=== PATIENT | female | born 1985 | race Caucasian/White ===

== ENCOUNTER 2025-04-21 13:02 | Emergency (ER) | payer BC, SELFPAY ==
--- NOTE | 2025-04-21 13:11 | ED.GENADULT ---
HPI - General Adult General Stated complaint: RT hip injury Time Seen by Provider: 04/21/25 13:06 History of Present Illness HPI narrative: This 39-year-old female comes in reporting injury in her right hip region. She states that she was swimming and climbing up a rock face apparently when she slipped down and feels like she stressed her hip joint. She did not have any direct impact to her hip. She was able to swim and then walk in water. She also has been able to ambulate on land but feels like she has some weakness in her hip mechanism. In particular she has pain in the flexor mechanism of her right hip. Related Data Home Medications ?Medication ?Instructions ?Recorded ?Confirmed allergen 1 tab sublingual DAILY 04/21/25 04/21/25 xt,mite,D.farinae-D.pteronyssinus 12 SQ-HDM sublingual tablet (Odactra) cetirizine 10 mg capsule (All Day 10 mg PO DAILY PRN 04/21/25 04/21/25 Allergy (cetirizine)) cholecalciferol (vitamin D3) 50 50 mcg PO DAILY 04/21/25 04/21/25 mcg (2,000 unit) capsule Allergies Allergy/AdvReac Type Severity Reaction Status Date / Time avocado Allergy Severe throat Verified 04/21/25 13:31 numb, tongue numb fluticasone (From Flonase) Allergy Intermediate Chest Pain Verified 04/21/25 13:31 Review of Systems Status of ROS: Reports: 10 or more systems reviewed and unremarkable except as noted in History and below Narrative: Constitutional: No fevers, no weight gain or loss. Eyes: No discharge. No vision changes. HENT: No congestion, no sore throat, no ear pain. Cardiovascular: No chest pain, no palpitations. Respiratory: No shortness of breath, no wheezes, no cough. Gastrointestinal: No abdominal pain, no vomiting, no diarrhea. Genitourinary: No dysuria, no hematuria. Musculoskeletal: Right hip pain as described above. Skin: No rashes, no pruritis. Neurological: No dizziness, weakness, sensory change, speech change. Endo/Heme/Allergies: No bruising or bleeding. No polydipsia. Pysch: no suicidality, no anxiety, no insomnia. All other systems reviewed and are negative. Exam Narrative: Exam Narrative: Constitutional: Well-developed, well-nourished, no acute distress. HEENT: Normocephalic, atraumatic. Neck: Normal range of motion. Nontender. Supple. Heart: Regular. No murmurs. Normal rate. Intact distal pulses. Lungs: Clear to auscultation. No chest discomfort. No wheezes, rhonchi, or rales. Abdomen: Normal bowel sounds. Nontender. No rebound tenderness. Genitalia: Deferred. Back: No midline tenderness. Normal range of motion. Extremities: No pain when log-rolling her right leg. No pain when stressing her pelvis. She has difficulty raising her right leg from the bed because of pain in the right hip flexor mechanism. Skin: Intact. No rash. Warm. No erythema or pallor. Neurologic: No altered sensation. No weakness. Alert and oriented. Psychiatric: No suicidality. No anxiety or depression. No insomnia. Nursing notes and vitals signs are reviewed. Const: Vital Signs, click to edit/add: Vital Signs - 24 hr 04/21/25 13:24 Temperature 97.6 F Pulse Rate [Left P ulse Oximeter] 56 L Respiratory Rate 18 Blood Pressure [Ri ght Upper Arm] 126/80 Pulse Oximetry 96 Oxygen Delivery Me thod Room Air Course Vital Signs Vital signs: Initial Vital Signs Temperature 97.6 F 04/21/25 13:24 Temperature Source Temporal Artery Scan 04/21/25 13:24 Pulse Rate 56 L 04/21/25 13:24 Respiratory Rate 18 04/21/25 13:24 Blood Pressure 126/80 04/21/25 13:24 Blood Pressure Mean 95 04/21/25 13:24 Blood Pressure Position Sitting 04/21/25 13:24 Pulse Oximetry 96 04/21/25 13:24 Oxygen Delivery Method Room Air 04/21/25 13:24 Vital Signs Temperature 97.6 F 04/21/25 13:24 Pulse Rate 56 L 04/21/25 13:24 Respiratory Rate 18 04/21/25 13:24 Blood Pressure 126/80 04/21/25 13:24 Pulse Oximetry 96 04/21/25 13:24 Oxygen Delivery Method Room Air 04/21/25 13:24 Temperature 97.6 F 04/21/25 13:24 Pulse Rate 56 L 04/21/25 13:24 Respiratory Rate 18 04/21/25 13:24 Blood Pressure 126/80 04/21/25 13:24 Pulse Oximetry 96 04/21/25 13:24 Oxygen Delivery Method Room Air 04/21/25 13:24 Medical Decision Making MDM Narrative Medical decision making narrative: This patient comes in with pain in her right hip region as described above. She is able to bear weight and is not showing any typical signs or symptoms of bony injury. I did discuss the role of x-ray and in a process of shared decision making this was declined for now. This is likely a strain of her hip flexor mechanism. The patient did receive crutches to assist with ambulating and and Inst[employer] prescription for Toradol. She is encouraged to ambulate as tolerated and increase activity as she is able. Discharge Plan Discharge Clinical Impression: Strain of flexor muscle of right hip Patient Disposition: Home w/ Parent or Adult Condition: Stable Additional Instructions: Take medication as needed and directed. Use crutches as needed to assist with ambulating. Increase activity as tolerated. Follow up with MD return if worsening. Prescriptions: No Action Odactra 12 SQ-HDM tablet, sublingual 1 tab sublingual DAILY All Day Allergy (cetirizine) 10 mg capsule 10 mg PO DAILY PRN cholecalciferol (vitamin D3) 50 mcg (2,000 unit) capsule 50 mcg PO DAILY Stand Alone Forms: [email or web address] Info Instructions
[2025-04-21 13:24] VITALS: BP 126/80; PULSE 56; RESP 18; TEMP 36.4; O2SAT 96; BMI 36.0
--- OUTSIDE RECORDS SUMMARY | 2025-04-21 14:09 | XMS_ITS | Patient Health Record ---
Author Organization [facility] Address [address] [place] [address] Care Team Providers Care Wardrobe Technician Name Role Phone XOCHILT SMITH, MAGDA Unavailable [phone] Olivia SMITH, Asuncion Unavailable Reason For Referral No Information Plan Of Treatment No Information Insurance Providers Payer Name Payer Address Payer Phone Subscriber Number Group Number Insured Name Patient Relationship to Insured Coverage Start Date Coverage End Date [facility] [place] [address] [address] [place] [address] [phone] [id number] Dc Felder Child - Insured has Financial Responsibility 6
--- OUTSIDE RECORDS SUMMARY | 2025-04-21 14:09 | XMS_ITS | Clinical Summary ---
Author Organization [facility] Address [address] [place] [address] Care Team Providers Care Disintegrator Name Role Phone Yancy Soria MD Primary Care Provider + Juan Tolbert DO Unavailable [phone] Allergies Active Allergy Reactions Criticality Noted Date Comments Avocado Anaphylaxis,Angioedema High 07/22/2021 Fluticasone Propionate Chest Pain 01/17/2018 Triamcinolone Acetonide Chest Pain 10/29/2023 Nasacort Medications cholecalcifero l, vitamin D3, (Cholecalcifer ol, VitD3,, Bulk,) 100,000 unit/gram powd Mix in liquid then take by mouth. Active Ascorbic Acid-Multivits -Min 1,000 mg pwep Take by mouth. Activ e cetirizine (ZYRTEC) 10 mg tablet Take 10 mg by mouth. 3 Active ibuprofen (ADVIL; MOTRIN) 200 mg tablet Take 200 mg by mouth. Active Odactra 12 SQ-HDM subl PLACE 1 TAB UNDER THE TONGUE DAILY. ALLOW TO COMPLETELY DISSOLVE DO NOT SWALLOW FOR AT LEAST 1 MIN Active clindamycin phosphate 1 % topical swab Apply 1 Swab topically to affected area(s) two times daily. 5 Active azelastine 137 mcg/actuation nasal spray Inhale 1 [place] into affected nostril(s) two times daily. 5 Active Zinc Acetate (Oral) 25 mg (zinc) cap Take 25 mg by mouth once daily. Active valACYclovir 1 gram tablet Take 1 g by mouth. At the earliest sign of symptom onset of cold sores, take 2000 mg (2 tablets) then repeat 12 hours later for 2 total doses 5 Active famotidine 20 mg tablet Take 40 mg by mouth once daily. Active chlorhexidine 4 % external liquid Apply topically to affected area(s). Active azelastine 137 mcg/actuation (ASTELIN) nasal spray USE 1-2 SPRAYS INTO BOTH NOSTRILS 2 TIMES DAILY DIRECTED 04/03/20 Discontinu ed(Duplica te therapy (E-cancel not sent)) Clindamycin Phosphate (Clindacin P) 1 % swab Apply topically to affected area(s) two times daily. 4 04/03/20 25 Discontinu ed(Duplica te therapy (E-cancel not sent)) Active Problems Problem Noted Date Diagnosed Date Hidradenitis suppurativa 03/27/2023 Family history of malignant neoplasm of thyroid 11/21/2017 Overview (12/03/2023): mother age 35 mother age 35 Antinuclear antibody (RONALD) positive 11/21/2017 Overview (04/03/2025): 2013 RONALD +; SCL70 ab + Ankylosing spondylitis 11/02/2017 Overview (12/03/2023): by history; HLAB 27 neg by history; HLAB 27 neg Debi's thyroiditis 11/02/2017 Overview (12/03/2023): 2013 Baljeet: TPO ab 83 (high) 2013 Lando: TPO ab 83 (high) Resolved Problems Problem Noted Date Diagnosed Date Resolved Date History of trauma 01/15/2024 04/03/2025 Encounter for fertility pres ervation counseling 12/24/2023 04/03/2025 Overview (04/03/2025): 06/09/2024 IVF Cycle #: 2 Flow Sheet [id number] Amber Felder Estrogen Priming/Non-OCP Antagonist Protocol Intent: Embryo accumulation 1985 [address] [facility] [address] Non-binary- they/them pronouns Age: 38 y.o.; Weight: There were no vitals filed for this visit.; IOWArranty: No Clinic Monitoring: [facility] Follicle #: 12 AMH: 0.44, 12/14/23 HgbA1c: 5.1, 12/26/23 Metformin: No TSH: 2.27, 12/26/23 Levothyroxine: No Patient STD Testing: Negative, 06/12/23 Allergies: is allergic to avocado and triamcinolone acetonide. Infertility Factors: Other Specify: same sex relationship ; Outcomes of prior fresh IVF cycles: had one embryo cryopreserved (not tested) Outcomes of prior frozen transfer: None Counsyl Screening? 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; Initials: RT Need to check donor Lab: ___; Pharmacy: [facility] Vial = 75 international units/vial (#vials 14 total) Follistim cartridges: (3)600; (1) 300; total = 2100 international units Ganirelix: (7) doses (Initiate Antagonist the AM after lead follicle is 12-13 mm; On day Antagonist initiated, either increase total dose of gonadotropins by 75 IU/day - OR - initiate Estrace 2 mg BID and continue until test.) Estrogen Priming Protocol LMP = 07/11/24; Cycle length = 26 days Instructed to begin LH testing on cycle day 6 = 07/16/24 and call with LH surge or if no LH surge by cycle day 21 (or day 19 or 20 to avoid weekend) = 07/29/24. Date: LH Surge Estrogen patch (0.1 mg) AM Ganirelix/Cetrotide AM or PM (consistent time) = LH SURGE TODAY = LH surge + 1 day = LH surge + 2 days = LH surge + 3 days = LH surge + 4 days = LH surge + 5 days = LH surge + 6 days = LH surge + 7 days 07/29-Call with no LH surge P4 8.3 patch start date determined by MD Miller = LH surge + 8 days 07/30 = LH surge + 9 days 08/01 = LH surge + 10 days Apply 2 patches 08/02 = LH surge + 11 days 250 mcg subQ 08/03 = LH surge + 12 days Apply 2 patches (remove the old ones) 250 mcg subQ 08/04 = LH surge + 13 days 250 mcg subQ 18 = LH surge + 14 days Apply 2 patches (remove the old ones); leave the 2 new patches on until they fall off LMP = 08/04/24 Ultrasound to be scheduled on cycle day 1, 2 or 3. Will begin FSH per non-OCP Antagonist protocol on cycle day 2 or 3. Non-OCP ANTAGONIST Treatment Day 1 2 3 4 5 6 7 8 9 10 11 12 13 14 15 Date 08/06 FSH (IU) Follistim 300 300 300 150 150 150 150 225 225 225 225 225 [facility] (dose in vials) 2 2 2 2 2 2 2 2 2 Antagonist Ganirelix 250 mcg (before 0900) No No Yes (am) Yes (am) Yes (am) Yes (am) Yes (am) Yes (am) Estrace 2 mg PO BID No No No No No No No No HCG 10,000 units IM x [id number] reviewer EJ EJ/ AI RM AE/PS RN initials LH SM SM LH Patient notified clinic clinic clinic clinic Meds/Misc. E2: 601 P4: 0.8 E2: 1241 P4: 0.8 Total # > 10 / Total # 0/3 2/3 2/4 3/4 F O L L I C L E S U/S R (mm) 10 8 5 14 11.5 7.5 15.5 15 11 3 19 16 12 4.5 Total # > 10 / Total # 1/7 1/7 2/8 6/7 U/S L (mm) 11 6 5 5 4.5 4 3 13 9 7.5 7 6 4 3 16 12 10 10 9 8.5 4 20 16 12.5 12 11 11 5.5 Endometrial Stripe (mm) 5 6.7 7.4 8.6 HCG trigger 08-18-2024 @ 2130 Retrieval 08-20-2024 @ 0930; Report @ 0845; RTL report N/A Evaluation Freeze all with later transfer to another Cycle Plans Insemination plan: ICSI Inseminate all oocytes: Yes PGT being used? No Fresh transfer planned? No DARDEN/TESE: No Donor Sperm: Yes: 1 vial in storage Stimulation __9_oocytes retrieved Retrieval & Transfer Transfer of embryos; easy; difficult Additional comments: ___ Other Special considerations: Yes, will need FDA labs!-Done 08/17/24 IVF Anesthesia Comorbidity Review completed with patient. Patient screens OUT. Amber is going through as an individual and not as a couple, but they are partnered with Bela (she/her). And plan is for eventual transfer to Bela's uterus in 3-5 years. As long as they remain in an intimate relationship, Bela will not be considered a GC per Dr. Hoover. Amber would like to donate their embryos to Bela if they are . Cycle Review: This cycle, including ultrasounds and blood results, was reviewed and managed by a specialist in Reproductive Endocrinology. 12/28/2023 IVF Cycle #: 1 Flow Sheet [id number] Amber Felder Estrogen Priming/Non-OCP Antagonist Protocol Intent: Fertility Preservation 1985 THEY/THEM PRONOUNS [address] [facility] [address] [facility] [address] Age: 38 y.o. FLORIDArranty: No Clinic Monitoring: [facility] Antral Follicle #: 12 AMH: 0.44, 12/14/23 HgbA1c: 5.1, 12/26/23 Metformin: No TSH: 2.27, 12/26/23 Levothyroxine: No Patient STD Testing: Negative, 06/12/23 Allergies: is allergic to avocado and triamcinolone acetonide. Infertility Factors: Freeze-All (Fertility Preservation or not); Outcomes of prior fresh IVF cycles: None Outcomes of prior frozen transfer: None Counsyl Screening? Patient pending carrier status of donor sperm Results/f/u: ; (date): ; Initials: ____ Lab: ND Pharmacy: [facility] Vial = 75 international units/vial (#vials 12 total) Follistim cartridges: 3x600 1x300 total = 2100 international units Ganirelix: 7 doses (Initiate Antagonist the AM after lead follicle is 12-13 mm; On day Antagonist initiated, either increase total dose of gonadotropins by 75 IU/day - OR - initiate Estrace 2 mg BID and continue until test.) Estrogen Priming Protocol LMP = 01/14; Cycle length = 26 Instructed to begin LH testing on cycle day 6 = 10/21 and call with LH surge or if no LH surge by cycle day 21 (or day 19 or 20 to avoid weekend) =02/03. Abstinence or condoms to begin on cycle day 6 = 10/21. Date: LH Surge Estrogen patch (0.1 mg) AM Ganirelix AM or PM (consistent time) 01/26 = LH SURGE TODAY 01/27 = LH surge + 1 day 01/28 = LH surge + 2 days 01/29 = LH surge + 3 days 01/30 = LH surge + 4 days 01/31 = LH surge + 5 days 02/01 = LH surge + 6 days 02/02 = LH surge + 7 days 02/03 = LH surge + 8 days 02/04 = LH surge + 9 days 02/05 = LH surge + 10 days Apply 2 patches 02/06 = LH surge + 11 days 250 mcg subQ 02/07 = LH surge + 12 days Apply 2 patches (remove the old ones) 250 mcg subQ 02/08 = LH surge + 13 days 250 mcg subQ 02/09 = LH surge + 14 days Apply 2 patches (remove the old ones); leave the 2 new patches on until they fall off LMP = __02/10/24 Ultrasound to be scheduled on cycle day 1, 2 or 3. Will begin FSH per non-OCP Antagonist protocol on cycle day 2 or 3. Non-OCP ANTAGONIST Treatment Day 1 2 3 4 5 6 7 8 9 10 11 12 13 14 15 Date 02/11 5 5/2 5/3 5/4 5/5 5/6 5/7 5/8 5 5 FSH (IU) Follistim 300 300 300 150 150 150 150 225 225 225 [facility]opur (dose in vials) 2 2 2 2 2 2 2 Antagonist Ganirelix 250 mcg (before 0900) No No Yes (am) Yes (am) Yes (am) Yes (am) Estrace 2 mg PO BID No No No No HCG 10,000 units IM 10K HPT MENDY SMITH reviewer MR/SS MR/SS RM/EJ RN initials br MO LH Patient notified c C clinic Meds/Misc. Total # > 10 / Total # 0/6 2/8 2/9 F O L L I C L E S U/S R (mm) 10 9 5 4 15 13 7 5 4 18 17 10 7 7 6 5 Total # > 10 / Total # 1/3 2/4 2/4 U/S L (mm) 11 10 4 14 14 5 5 17 16 7 6 Endometrial Stripe (mm) 4.6 7.9 8.9 HCG trigger 02-22-2024 @ 1930 Retrieval 02-24-2024 @ 0730 ; Report @0645 ; RTL N/A-donor sperm Evaluation Uterine Sounding: Not done, patient does not intend to carry Cycle Plans Insemination plan: ICSI Inseminate all oocytes: Yes PGT being used? No Fresh transfer planned? No DARDEN/TESE: No Donor Sperm: Yes - one vial in storage at [facility] Stimulation 7 oocytes retrieved Retrieval IVF Anesthesia Comorbidity Review completed with patient. Patient screens IN for the following reasons: Pt has acid reflex from a medication that she is currently prescribed. I discussed with Amber to start an OTC medication for reflux prior to starting stim. Amber had an enlarged thyroid as a child. Other Special considerations: -going through as an individual and not as a couple, but they are partnered with Bela (she/her). And plan is for eventual transfer to Bela's uterus in 3- 5 years. As long as they remain in an intimate relationship, Bela will not be considered a GC per Dr. Hoover. Amber would like to donate their embryos to Bela if they are . Need FDA labs drawn. Bunn code: [id number] Outcome Cycle Review: This cycle, including ultrasounds and blood results, was reviewed and managed by a specialist in Reproductive Endocrinology. Encounters Date Type Department Care Team Description 04/21/2025 Nurse Triage [facility] [address] [place] [address] Yancy Soria MD Hip Injury 04/12/2025 4:35 PM CDT Telemedicine [facility] [address] [id number] Juan Tolbert, DO Establish Care (Discuss work accomodation letter) 04/12/2025 Orders Only [facility] Scanner 1 scan: (1-Ord) INCOMING RECORDS-, [employer], 04/12/2025 04/11/2025 Travel from Last 3 Months Immunizations Immunization Administration Dates Next Due COVID-19 VACCINE COMIRNATY (PFIZER-BIONTECH 30MCG/0.3ML) 12YO+ PFS 07/27/2023 COVID-19 VACCINE NOVAVAX 202 -2023 FORMULA 09/08/2024 DTP 12/13/1992, 8,1987,08/21 HPV 9 (Gardasil 9) 03/02/2023,11/11/2022, 022 Hepatitis A, Unspecified 06/12/2008,11/05/2007 Hepatitis B (Peds) 09/05/2002,01/31/2002, 002 Hepatitis B, Unspecified 09/05/2002,01/31/2002,0 12/28/2001 Hib Conjugate, Unspecified 1987 Inactivated Polio Vaccine 11/05/2007 Influenza Virus, Unspecified 09/08/2024 MMR 12/13/1992,09/25/1988 Meningococcal Vaccine (Menactra) 02/20/2006 Meningococcal, Unspecified 02/20/2006 Opv, Monovalent, Unspecified 12/13/1992 Oral Polio Vaccine 12/13/1992, 8,1987,08/21 Polio (Oral Polio Vaccine,Unspecified) 8,1987,1987 TD, UNSPECIFIED 04/28/2002 Td (Age >=7 Years) 04/28/2002 Tdap 02/17/2016,10/19/2015 Typhoid (oral) 11/05/2007 Yellow Fever 11/05/2007 Family History Medical History Relation Name Comments Heart murmur Brother 1 Enoc Good Health Brother 2 Lars Alcoholism Father Depression Father Coronary artery disease Maternal Grandfather of heart attack Cataracts Mother Hearing loss Mother Thyroid cancer Mother Cancer-prostate Paternal Grandfather Cancer-breast Paternal Grandmother Good Health Sister Karen Relation Name Status Comments Brother 1 Enoc Alive Brother 2 Lars Alive Father Alive Maternal Grandfather Maternal Grandmother Mother Alive Paternal Grandfather Paternal Grandmother Sister Karen Alive Social History Tobacco Use Types Packs/Day Years Used Date Smoking Tobacco: Never Smokeless Tobacco: Never Tobacco Cessation:Counseling Given: Not Answered Alcohol Use Standard Drinks/Week Comments Yes 0 (1 standard drink = 0.6 oz pur e alcohol) 2-3 times a week PHQ-2 Answer Date Recorded PHQ-2 TOTAL SCORE 3 04/12/2025 Comments No Sex and Gender Information Value Date Recorded Sex Assigned at Female 04/03/2025 11:04 PM CDT Legal Sex 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 Gender Identity NB 04/03/2025 11:04 PM CDT Sexual Orientation Not on file Obstetrics History Last Filed Vital Signs Vital Sign Reading Time Taken Comments Blood Pressure 110/68 12/03/2023 4:52 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 Pulse 68 12/03/2023 4:52 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 Temperature - - Respiratory Rate - - Oxygen Saturation - - Inhaled Oxygen Concentration - - Weight 92.4 kg (203 lb 12.8 oz) 12/03/2023 4:52 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 Height 160 cm (5' 3) 12/03/2023 5:37 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 Body Mass Index 36.1 12/03/2023 4:52 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 Plan of Treatment Health Maintenance Due Date Last Done Comments BMI (ht and wt on same day) for age 18+ 2005 Influenza Vaccine (#1) 2025 09/08/2024 Tetanus booster 02/16/2026 02/17/2016, 10/2015, 04/28/2002, Additional history exists Depression screening for age 12+ 04/12/2026 04/12/2025 Pap test for age 21-65 08/09/2026 (Verified in Care Everywhere or Patient Record) Lipids for age 35-44 12/25/2028 12/26/2023 (Verified in Care Everywhere or Patient Record) Hepatitis B series for 19+ Completed 09/05, 09/05/2002, 01/31/2002, Additional history exists Hepatitis C screening for age 18-79 Addressed 11/11/2022 (Verified in Care Everywhere or Patient Record) Overridden with the intention of not completing the topic HIV for age 15-65 Addressed 06/12/2023 (Ve rified in Care Everywhere or Patient Record) Overridden with the intention of not completing the topic COVID-19 vaccine series Completed 09/08/20 24, 07/27/2023, 07/29/2022, Additional history exists Pneumococcal series for age 6-49 Aged Out No longer eligible b ased on patient's age to complete this topic Procedures Procedure Name Priority Date/Time Associated Diagnosis Comments SCAN CORRESP-IMAGING 04/12/2025 12:00 AM CDT from Last 3 Months Results * SCAN CORRESP-IMAGING (04/12/2025 12:00 AM CDT) Anatomical Region Laterality Modality Other us Scanner OTHER Final Result from Last 3 Months Insurance [facility] Care Teams Disintegrator Relationship Specialty Start Date End Date Yancy Soria MD [address] [place] [address] PCP - General Family Practice 12/03/23 Juan Tolbert DO [address] [id number] Family Practice 04/12/25
== END 2025-04-21 14:22 | disposition home or self-care (01) ==
LOC: ED 14:07
PROVIDERS: Emergency Provider Emergency Medicine Emergency Medical Services; PCP Family Medicine
DX: S76.911A Strain of unspecified muscles, fascia and tendons at thigh level, right thigh, initial encounter (principal); Y93.31 Activity, mountain climbing, rock climbing and wall climbing
CPT/HCPCS: 99282; 99283; 99284